=== PATIENT | male | born 1960 | race Caucasian/White ===

== ENCOUNTER 2018-08-05 08:35 | Emergency (ER) | payer OTHER ==
[2018-08-05] MEDS ORDERED: Amoxicillin/Clavulanate K 875-125 MG Tab ONE (09:20)
[2018-08-05] MEDS ORDERED: Bacitracin Oint 1 GM U/D Packet TOP ONE (09:30)
[2018-08-05 09:43] VITALS: BP 150/85
--- NOTE | 2018-08-05 09:47 | EDM.PDOC ---
ED HPI GENERAL MEDICAL PROBLEM - General Stated Complaint: puncture wound to foot Time Seen by Provider: 08/05/18 09:15 Source of Information: Reports: Patient History Limitations: Reports: No Limitations - History of Present Illness INITIAL COMMENTS - FREE TEXT/NARRATIVE: According to patient he stepped on irvin nail in the yard yesterday and sustained a puncture wound over the right foot. Today morning when he woke up he has noticed some redness and swelling around the puncture site. No discharge. No swelling of the foot. Able to walk on his foot with out discomfort. No fever or chills. Pt's last tetanus was in 2011. No other complaints. Onset Date: 08/04/18 Location: Reports: Lower Extremity, Right Quality: Reports: Ache Severity: Mild Improves with: Reports: None Worsens with: Reports: None Associated Symptoms: Denies: Confusion, Chest Pain, Fever/Chills, Nausea/ Vomiting, Rash, Seizure, Shortness of Breath - Related Data Allergies Allergy/AdvReac Type Severity Reaction Status Date / Time No Known Allergies Allergy Verified 11/20/14 11:25 Home Meds: Home Meds atorvaSTATin [Lipitor] 11/20/14 [History] ED ROS GENERAL - Review of Systems Review Of Systems: See Below Constitutional: Denies: Fever, Chills, Weakness HEENT: Denies: Rhinitis, Throat Pain Respiratory: Denies: Cough, Sputum Cardiovascular: Denies: Chest Pain, Lightheadedness, Syncope GI/Abdominal: Denies: Abdominal Pain, Nausea, Vomiting Skin: Reports: Wound. Denies: Bruising, Pruritis, Rash Neurological: Denies: Confusion, Dizziness, Headache, Numbness, Tingling, Weakness ED EXAM, GENERAL - Physical Exam Exam: See Below Exam Limited By: No Limitations General Appearance: Alert, WD/WN, No Apparent Distress Eye Exam: Bilateral Eye: EOMI, PERRL Ears: Normal External Exam, Normal Canal, Hearing Grossly Normal, Normal TMs Ear Exam: Bilateral Ear: Auricle Normal, Canal Normal, TM normal Nose: Normal Inspection, Normal Mucosa, No Blood Throat/Mouth: Normal Inspection, Normal Lips, Normal Teeth, Normal Gums, Normal Oropharynx, Normal Voice, No Airway Compromise Head: Atraumatic, Normocephalic Neck: Normal Inspection, Supple, Non-Tender, Full Range of Motion Respiratory/Chest: No Respiratory Distress, Lungs Clear, Normal Breath Sounds, No Accessory Muscle Use, Chest Non-Tender Cardiovascular: Normal Peripheral Pulses, Regular Rate, Rhythm, No Edema, No Gallop, No JVD, No Murmur, No Rub Extremities: Normal Range of Motion, No Pedal Edema, Normal Capillary Refill, Other (Right foot: there is an area of erythema over the lateral aspect of the foot. Approximately 1cm by 2cm. There is a small puncutre of the skin noted. Minimal tenderness over the werythema. No bony tenderness over the metatarsals. Normal gait.) Course - Vital Signs Text/Narrative:: Pt has a mild infection around the puncture wound. it appear like superficial infection. he is upto date on tetanus. He claims the nail was irvin, hence he has been empirically covered with Augmentin 875mg BID for next 10 days. Advised simple bacitracin dressing. If symptoms worsen followup with his primary care provider. Last Recorded V/S: Last Vital Signs Temp 98.2 F 08/05/18 09:15 Pulse 57 L 08/05/18 09:15 Resp 14 08/05/18 09:15 BP 150/85 H 08/05/18 09:15 Pulse Ox 99 08/05/18 09:15 Departure - Departure Time of Disposition: 09:45 Disposition: Home, Self-Care 01 Clinical Impression: Puncture wound of foot - Discharge Information *PRESCRIPTION DRUG MONITORING PROGRAM REVIEWED*: Not Applicable *COPY OF PRESCRIPTION DRUG MONITORING REPORT IN PATIENT DAVID: Not Applicable Instructions: Wound Infection Referrals: PCP,None [Primary Care Provider] - Care Plan Goals: Take antibiotic as prescribed. keep wound clean and dry. Return if symptoms worsen. - Problem List & Annotations (1) Puncture wound of foot SNOMED Code(s): 45936703 Code(s): S91.339A - PUNCTURE WOUND WITHOUT FOREIGN BODY, UNSP FOOT, INIT ENCNTR Status: Acute - Problem List Review Problem List Initiated/Reviewed/Updated: Yes - Assessment/Plan Assessment:: puncture wound right foot Plan: Pt has a mild infection around the puncture wound. it appear like superficial infection. he is upto date on tetanus. He claims the nail was irvin, hence he has been empirically covered with Augmentin 875mg BID for next 10 days. Advised simple bacitracin dressing. If symptoms worsen followup with his primary care provider.
== END 2018-08-05 09:34 | disposition home or self-care (01) ==
LOC: LB.ED 08:35
DX: S91.331A Puncture wound without foreign body, right foot, initial encounter (principal); W45.0XXA Nail entering through skin, initial encounter; Z79.899 Other long term (current) drug therapy
CPT/HCPCS: 99282; A9270; 99283